=== PATIENT | male | born 1960 | race Caucasian/White ===

== ENCOUNTER → 2024-03-03 07:31 | Outpatient (REF) | payer BC, SELFPAY ==
[2024-03-03 08:03] LABS: % Basophils 0.6 % (0-2); % Eosinophils 3.4 % (0-6); % Immature Granulocytes 0.4 % (0-0.5); % Lymphocytes 22.5 % (20.5-51.1); % Monocytes 7.1 % (1.7-9.3); Absolute Basophils 0.1 10^3/uL (0-0.2); Absolute Eosinophils 0.4 10^3/uL (0-0.7); Absolute Lymphocytes 2.3 10^3/uL (1.2-3.4); Absolute Monocytes 0.7 10^3/uL (0.1-0.6); Absolute Neutrophils 6.8 10^3/uL (1.4-6.5); Hematocrit 38.2 % (39.0-52.0); Mean Corpuscular Hgb 32.6 pg (27.0-31.0); Mean Corpuscular Volume 95.7 fL (80.0-94.0); Mean Platelet Volume 10.9 fL (7.4-10.4); Nucleated Red Blood Cells % 0 % (-); Platelet Count 174 10^3/uL (130-400); Red Blood Cell Count 3.99 10^6/uL (4.70-6.10); Red Cell Dist. Width 13.5 % (11.5-14.5); White Blood Cell Count 10.3 10^3/uL (4.8-10.8)
[2024-03-03 08:46] LABS: ALT (SGPT) 15 U/L (0-50); AST (SGOT) 18 U/L (17-59); Albumin 4.4 g/dl (3.5-5.0); Alkaline Phosphatase 67 U/L (38-126); Blood Urea Nitrogen 15 mg/dl (9-20); Calcium 9.5 mg/dl (8.4-10.2); Carbon Dioxide 29 mmol/L (22-30); Chloride 102 mmol/L (98-107); Glucose 100 mg/dl (70-99); HDL Cholesterol 49 mg/dl; LDL Cholesterol, Calculated 51 mg/dl; Potassium 4.8 mmol/L (3.5-5.1); Sodium 141 mmol/L (135-145); Total Bilirubin 0.8 mg/dl (0.2-1.3); Total Cholesterol 119 mg/dl (50-199); Total Protein 7.2 g/dl (6.3-8.2); Triglyceride 99 mg/dl (10-149); Very Low Density Lipoprotein 19 mg/dl (0-30); eGFR > 60.00
[2024-03-03 09:17] LABS: PSA, Total - Screen 0.77 ng/ml (0.0-4.0)
[2024-03-03 09:36] LABS: Hepatitis C Antibody Negative (Negative)
[2024-03-03 09:42] LABS: Glycohemoglobin (HgbA1c) 5.7 % (4.0-5.6)
== END ==
LOC: REG 07:31
PROVIDERS: ATTENDING PHYSICIAN Internal Medicine
DX: Z12.5 Encounter for screening for malignant neoplasm of prostate (principal); Z11.59 Encounter for screening for other viral diseases; E11.9 Type 2 diabetes mellitus without complications; I48.91 Unspecified atrial fibrillation; E78.2 Mixed hyperlipidemia
CPT/HCPCS: 36415; 80053; 80061; 83036; 85025; 86803; G0103

== ENCOUNTER 2024-09-20 06:27 | Observation (INO) | payer BC, SELFPAY ==
[2024-09-20 01:44] VITALS: BP 186/104
--- NOTE | 2024-09-20 01:55 | ED.GENMED ---
History of Present Illness
General
Chief Complaint: Cough
Source: patient
Exam Limitations: none
Time Seen by Provider: 09/20/24 01:46
Nursing documentation reviewed up to this point in time: agreed with
History of Present Illness
History of Present Illness:
Pleasant 64-year-old male presents to the emergency department with multiple episodes of hemoptysis. He states that the symptoms began approximately 1 hour ago. He is concerned because he is on Eliquis for paroxysmal atrial fibrillation. Patient
is a smoker. He states that he cut back to three quarters of a pack per day. He does have high blood pressure and hyperlipidemia. Patient has had cancer scares in the past and gets a radiology study regularly to rule out 1.
Past History
Past History
ED Past Medical History: Arrthythmia (afib on eliquis), GERD, HTN, Hypercholesterolemia and NIDDM
ED Past Surgical History: Other (hernia)
Social History
Tobacco: Smoker
Alcohol: Daily
Review of Systems
Review of Systems
Allergies reviewed?: Yes
Other source history: family
All Other Systems: ROS reviewed and negative except as documented in HPI and ROS
Constitutional: Reports no symptoms
EENT: Reports no symptoms
Respiratory: Reports cough and hemoptysis; Denies trouble breathing
Cardiac: Denies chest pain or palpitations
ABD/GI: Reports no symptoms
: Reports no symptoms
Musculoskeletal: Reports no symptoms
Skin: Reports no symptoms
Neurological: Reports no symptoms
Endocrine: Reports no symptoms
Hematologic/Lymphatic: Reports no symptoms
Psychiatric: Reports no symptoms
Phy Exam
General Physical Exam
General Presentation: well appearing and no apparent distress
General Skin: warm and dry
General Habitus: normal
General Mental: alert
General Hydration: appears well hydrated
ENT Exam
ENT Exam: EOMI, pharynx normal, neck supple and normocephalic
Eye Exam
Eye Exam: PERRL, cornea clear and conjunctiva normal
Cardiovascular Exam
Cardiovascular Exam: regular rate/rhythm, no edema, no murmur and normal peripheral pulses
Pulmonary Exam
Pulmonary Exam: lungs clear, no respiratory distress, no rales, no crackles, no rhonchi, no stridor, no wheezing and no cough
Gastrointestinal Exam
Gastrointestinal Exam: normal bowel sounds, non tender, soft, no organomegaly, no pulsatile mass and non distended
Neurological Exam
Neurological Exam: alert, oriented x3, no motor deficits and speech normal
Musculoskeletal Exam
Musculoskeletal Exam: full ROM and no edema
Skin Exam
Skin Exam: normal color, warm/dry, no rash and no petechia
Psychiatric Exam
Psychiatric Exam: normal mood/affect
Course
Orders/Labs/Results
Orders:
Orders
09/20/24 01:54
Electrocardiogram (*1) Stat
Reason for Study: Other
Other Reason for Exam: chest pain
CT Chest PE Study Urgent
Comment:
Reason For Exam: mult episodes of hemoptysis
Cardiac Monitoring- Treatment ONCE
EKG- Treatment ONCE
09/20/24 02:17
Complete Blood Count/With Diff Urgent
Comprehensive Metabolic Panel Urgent
PTT Urgent
Prothrombin Time Urgent
Troponin I Urgent
Abnormal Lab Results
09/20/24
02:17
RBC 4.14 L 10^6/uL
(4.70-6.10)
Hgb 12.6 L g/dL
(13.0-18.0)
Hct 37.4 L %
(39.0-52.0)
RDW 14.6 H %
(11.5-14.5)
Glucose 118 H mg/dl
(70-99)
09/20/24 02:17
09/20/24 02:17
Vital Signs
Initial and Last Documented VS:
Initial Vital Signs
Temp Pulse Resp BP Pulse Ox
98 F 116 20 186/104 100
09/20/24 01:44 09/20/24 01:44 09/20/24 01:44 09/20/24 01:44 09/20/24 01:44
Last Documented Vital Signs
Temp Pulse Resp BP Pulse Ox
98 F 111 15 135/87 96
09/20/24 01:44 09/20/24 04:11 09/20/24 04:11 09/20/24 04:11 09/20/24 04:11
Update Note
Update Note:
CTA chest with IV contrast
IMPRESSION:
No pulmonary embolism. Aortic atherosclerotic disease without dissection or aneurysm.
Moderate cardiomegaly with coronary artery disease. Dependent atelectasis. No pneumothorax or pleural effusion.
Cholelithiasis without cholecystitis. Multiple adrenal nodules bilaterally are nonspecific.
Went into discussed CAT scan and lab work with patient.
Patient coughed up a large amount of bright red blood and blood clots right in front of me. Lab work looks normal
CT scan looks normal
ED Attending Note
-
Portions of this chart may have been created with voice recognition software.� Occasional wrong word or��sound alike� substitutions may have occurred due to the inherent limitations of voice recognition software.
Discharge Plan
Departure
Patient Disposition: Admit
Date of Disposition: 09/20/24
Time of Disposition: 04:31
Admit to: Telemetry
Presentation/result/management discussed w/ accepting MD/DO: Hospitalist
Patient with high blood pressure during this ER visit?: Yes
Condition: Good
Discharge Problem:
Cough with hemoptysis
Instructions: Coughing up blood, BLOOD PRESSURE
Prescriptions:
No Action
aspirin 81 MG tablet,chewable
81 mg PO DAILY Qty: 30 0RF
metformin 500 MG tablet
500 mg PO BID@0800,1700 Qty: 60 0RF
losartan 25 MG tablet
25 mg PO DAILY
esomeprazole magnesium [Nexium] 20 MG capsule,delayed release(DR/EC)
20 mg PO DAILY
atorvastatin 80 MG tablet
40 mg PO QPM
apixaban [Eliquis] 5 MG tablet
5 mg PO BID 30 Days Qty: 60 0RF
diltiazem HCl 180 MG capsule,extended release 24hr
180 mg PO DAILY 30 Days Qty: 30 0RF
Rx Instructions:
fill 180mg RX, cancel 120mg RX
Referrals:
[facility] [Outside]
[facility] [Outside]
UNKNOWN - PT DOES,NOT KNOW [Family Provider] -
Activity Restrictions/Additional Instructions:
Thank You for choosing [facility].
It was a pleasure meeting you and taking part in your care. We hope for your continued healing and wellness.
Please read discharge instructions in their entirety. However, they are for general education and may not describe your exact diagnosis at discharge. Information on your ER visit and medical conditions were discussed with you along with appropriate
follow up information...
If indicated, please take your medications as instructed and indicated on discharge paperwork.
Please schedule a follow up appointment as directed. Call to schedule an appointment
Please return to the emergency department with ANY change in, persisting, or worsening of symptoms. If any of your symptoms do not improve, or persist, or become more severe within 6-12 hours, please return to the emergency department for further
care.
Please return to the emergency department if you develop a headache, neck pain/stiffness, fever greater than 100.4F, chest pain, shortness of breath, persistent nausea, vomiting, slurred speech, difficulty walking, numbness/tingling, weakness, signs
of infection or any other symptoms that are worrisome to you.
If you have any questions or concerns please do not hesitate to call the Hospital at or E-mail me directly at [email or web address]
Interventions
Interventions:
*Risk Screen - Suicide Last Done: 09/20/24 01:44
*General Assessment Last Done: 09/20/24 02:08
*Neglect/Abuse Screening Last Done: 09/20/24 01:44
*ED- Fall Risk Assessment Last Done: 09/20/24 02:08
*ED COVID-19 Vaccine History Last Done: 09/20/24 02:08
ED- Pulmonary Assessment Last Done: 09/20/24 02:47
Discharge Date and Time
Print Language: UPPER SORBIAN
[2024-09-20 02:00] VITALS: BP 135/87
[2024-09-20 02:08] VITALS: BMI 29.3
[2024-09-20 02:47] LABS: % Basophils 0.6 % (0-2); % Eosinophils 4.1 % (0-6); % Immature Granulocytes 0.3 % (0-0.5); % Lymphocytes 26.4 % (20.5-51.1); % Monocytes 6.3 % (1.7-9.3); % Neutrophils 62.3 % (42.2-75.2); Absolute Basophils 0.1 10^3/uL (0-0.2); Absolute Eosinophils 0.4 10^3/uL (0-0.7); Absolute Lymphocytes 2.6 10^3/uL (1.2-3.4); Absolute Monocytes 0.6 10^3/uL (0.1-0.6); Absolute Neutrophils 6.1 10^3/uL (1.4-6.5); Hematocrit 37.4 % (39.0-52.0); Hemoglobin 12.6 g/dL (13.0-18.0); Mean Corp Hgb Conc. 33.7 g/dL (33.0-37.0); Mean Corpuscular Hgb 30.4 pg (27.0-31.0); Mean Corpuscular Volume 90.3 fL (80.0-94.0); Mean Platelet Volume 10.3 fL (7.4-10.4); Nucleated Red Blood Cells % 0 % (-); Platelet Count 186 10^3/uL (130-400); Red Blood Cell Count 4.14 10^6/uL (4.70-6.10); Red Cell Dist. Width 14.6 % (11.5-14.5); White Blood Cell Count 9.8 10^3/uL (4.8-10.8)
[2024-09-20 03:13] LABS: ALT (SGPT) 14 U/L (0-50); AST (SGOT) 24 U/L (17-59); Albumin 4.4 g/dl (3.5-5.0); Alkaline Phosphatase 62 U/L (38-126); Blood Urea Nitrogen 15 mg/dl (9-20); Calcium 9.3 mg/dl (8.4-10.2); Carbon Dioxide 25 mmol/L (22-30); Chloride 105 mmol/L (98-107); Estimated Creatinine Clearance 78 ml/min; Glucose 118 mg/dl (70-99); Sodium 140 mmol/L (135-145); Total Bilirubin 0.9 mg/dl (0.2-1.3); Total Protein 7.2 g/dl (6.3-8.2); eGFR > 60.00
[2024-09-20 03:18] LABS: INR 0.99; PT 13.4 Sec (11.4-14.6)
[2024-09-20 03:19] LABS: APTT 33.9 Sec (23.4-35.0)
[2024-09-20 03:20] LABS: Troponin I < 0.012 ng/ml
[2024-09-20 04:11] VITALS: BP 135/87
[2024-09-20 05:01] VITALS: BP 162/108
--- NOTE | 2024-09-20 05:04 | EDRN ---
pt cont to cough up bright red blood. pt denies pain, no complaints other than hemoptysis. pt noted to be tachycardic, in afib. dr jones made aware. refer to rhythm strip.
--- NOTE | 2024-09-20 05:48 | HPS.HSE ---
Family Physician
-
Family Physician: NOT KNOW UNKNOWN - PT DOES
Chief Complaint
-
Hemoptysis
History of Present Illness
This is a 61-year-old male with past medical history significant for atrial fibrillation on anticoagulation with apixaban, GERD, hypertension, diabetes, prior CVA who presents to the emergency department with acute episode of hemoptysis.
Patient reported going to bed in usual state of health. He denies any cough cold or flulike symptoms. He had no recent sick contacts. He reports no recent chest pain shortness of breath or dyspnea on exertion. He reports no lower extremity
swelling or tenderness. Patient denies any nausea or vomiting or diaphoresis. He denies any fevers or chills. States that middle of the night he woke up coughing. Initially was swallowing his cough. However when he got up to urinate he spit out
the cough and noticed that it was nesha blood. He coughed a few more times and had blood and he said to come to the emergency department. He also reported that he sneezed once and also had an episode of blood coming out of his nose.
Patient reports taking Eliquis regularly. He denies any NSAID use. He denies aspirin. He has no recent travels. He has no history of TB. Denies any history of malignancy. He is daily smoker stating that he has smoked all his life. Denies COPD.
In the emergency department he was afebrile, he was hemodynamically stable with a blood pressure of 135/87, pulse of 111 oxygen saturation of 96% on room air. ECG shows atrial fibrillation at a rate of 103. CBC was unremarkable with a normal WBC,
hemoglobin of 12.6 and platelet of 186. INR was 0.9. Electrolytes BUN and creatinine were normal. LFTs were unremarkable. CT chest with angiogram and PE protocol was negative for PE. There were no mass. There was no acute infiltrate. There
was no pulmonary edema.
Medical History
Past Medical History
Past Medical History: Reports Arrhythmia (Atrial fibrillation on anticoagulation), GERD, HTN and NIDDM
Past Surgical History: Reports Other (Hiatal hernia repair)
Social History
Tobacco: Smoker
Alcohol: None
Drug: None
Personal:
Living: With Family
Employment: Employed
Family History
Family History: Not pertinent
Allergies / Home Medications
Allergies reflects when Allergies were last updated in [facility].
Home Medications with original date entered in [facility]
Allergy/Medication List:
Allergies
Allergy/AdvReac Type Severity Reaction Status Date / Time
No Known Allergies Allergy Verified 09/20/24 01:46
Home Medications
aspirin 81 mg chewable tablet 81 mg PO DAILY #30 tabs 02/09/19
metformin 500 mg tablet 500 mg PO BID@0800,1700 #60 tabs 02/09/19
apixaban 5 mg tablet (Eliquis) 5 mg PO BID 30 days #60 tabs 06/06/21
atorvastatin 80 mg tablet 40 mg PO QPM 06/06/21
diltiazem HCl 180 mg capsule,extended release 24 hr 180 mg PO DAILY 30 days #30 caps 06/06/21
esomeprazole magnesium 20 mg capsule,delayed release (Nexium) 20 mg PO DAILY 06/06/21
losartan 25 mg tablet 25 mg PO DAILY 06/06/21
Review of Systems
-
History Source: Patient
Constitutional: Reports No Symptoms
EENT: Reports No Symptoms
Respiratory: Reports Cough and Hemoptysis
Cardiac: Reports No Symptoms
Abdomen/GI: Reports No Symptoms
: Reports No Symptoms
Musculoskeletal: Reports No Symptoms
Skin: Reports No Symptoms
Neurological: Reports No Symptoms
Endocrine: Reports No Symptoms
Hematologic/Lymphatic: Reports No Symptoms
Psych: Reports No Symptoms
Physical Exam
Vital Signs
Vital Signs
Temp Pulse Resp BP Pulse Ox
98 F 111 15 135/87 96
09/20/24 01:44 09/20/24 04:11 09/20/24 04:11 09/20/24 04:11 09/20/24 04:11
Physical Exam
General: Well Developed, Well Nourished, Comfortable and Conversant
HEENT: NormoCephalic, Anicteric, Moist mucous membranes and Atraumatic
Respiratory: Clear
Cardiac: S1/S2 and Irregular Rhythm
Breast: Deferred by me
GI: Soft, Non Tender, Non Distended and Normal Bowel Sounds
Rectal: Deferred by Provider
Genito-urinary: Deferred by me
Musculoskeletal: No Clubbing, No Cyanosis and No Edema
Skin: Warm
Neuro: AO x 3 and No Motor Deficits
Laboratory Results
-
09/20/24 02:17
09/20/24 02:17
Laboratory Results
PT 13.4 Sec (11.4-14.6) 09/20/24 02:17
INR 0.99 09/20/24 02:17
APTT 33.9 Sec (23.4-35.0) 09/20/24 02:17
Total Bilirubin 0.9 mg/dl (0.2-1.3) 09/20/24 02:17
AST 24 U/L (17-59) 09/20/24 02:17
ALT 14 U/L (0-50) 09/20/24 02:17
Alkaline Phosphatase 62 U/L (38-126) 09/20/24 02:17
Troponin I < 0.012 ng/ml 09/20/24 02:17
Data Reviewed
-
CT Scan: Report Reviewed by me
Medical Tests (Nuc Med, Echo, EKG etc): Image Personally Visualized and interpreted
Lab Data: Labs Reviewed by me
Impression/Plan
-
IMPRESSION:
This is a 64-year-old with history of smoking who presents with acute episode of moderate hemoptysis that started early this morning. He arose with cough productive of nesha blood. He has coughed up about 30 mL in the last [address] scan
does not provide a clear diagnosis. Patient does not have any evidence of acute bronchitis. He has no pneumonia. He is not immunocompromised There is no pulmonary embolism. He has no pulmonary edema. He has had no trauma. He is at high risk for
malignancy given his significant smoking history. In the absence of CT evidence of a clear diagnosis a flexible bronchoscopy important component of the evaluation.
PLAN:
Hemopytsis - Non-life threatening. Stable respiratory and hemodynamics.
- admit to med/surg
- check covid/flu/rsv and extended viral panel
- sputum culture
- collect sample for volume and culture
- holding apixaban for now
- inflammatory panel
- Pulmonary consultation
DM II
- hold metformin, continue sliding scale insulin
AFIB
- holding apixaban
- continue diltiazem
continue his losartan and statin
DVT PPX - SCDs
Code Status - Full code
[2024-09-20 06:27] VITALS: BMI 29.3
[2024-09-20 06:37] LABS: COVID-19 Antigen Negative (Negative)
[2024-09-20 07:12] VITALS: BMI 29.3
[2024-09-20] MEDS: CARDIZEM CD 180 MG PO (08:23)
[2024-09-20] MEDS: COZAAR 25 MG PO (08:24)
[2024-09-20 08:29] LABS: Glucose - Point of Care 111 mg/dl (70-99)
[2024-09-20 09:34] VITALS: BP 137/91
[2024-09-20 09:38] LABS: Glucose - Point of Care 119 mg/dl (70-99)
[2024-09-20] MEDS: PROTONIX 40 MG PO (10:12)
[2024-09-20 12:35] VITALS: BP 130/86
[2024-09-20 12:36] LABS: Glucose - Point of Care 90 mg/dl (70-99)
--- NOTE | 2024-09-20 13:46 | CON.PUL ---
Consultation
Consultation Request
Date/Time Consultation Requested: 09/20/2024
Date/Time Consultation Performed: 09/20/2024
Requesting Provider: Dr. Lam
Performing Provider: Dr. Yves Barron
Reason for Consultation: Hemoptysis
Medical History
-
History of Present Illness:
64-year-old man with history of smoking who presented with acute episode of moderate hemoptysis starting today. Patient arose from bed with a productive cough of nesha blood. CT of the chest showed no acute abnormalities.
Denies any symptoms suggestive of infection.
CT chest without pulmonary embolism either.
Denies shortness of breath.
Previous to this he was on his usual thyroid health. Patient denies any other complaints.
He has been in the hospital since 1 AM. Hemoptysis clearing. Minimal old blood clots.
He feels well.
Denies dark stools
Denies acid reflux symptoms
Denies swallowing problems.
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
Denies constitutional symptoms from
Denies weight loss
He smokes about half a pack per day.
Past Medical History
Past Medical History: Other (See assessment and plan)
Social History
Tobacco: Smoker
Alcohol: None
Drug: None
Personal:
Living: With Family
Employment: Employed
Family History
Family History: Reviewed & Not Pertinent
Allergies / Home Medications
Allergies
Allergy/AdvReac Type Severity Reaction Status Date / Time
No Known Allergies Allergy Verified 09/20/24 01:46
Home Medications
�Medication �Instructions �Recorded �Confirmed �Last Taken �Type
apixaban 5 mg tablet (Eliquis) 5 mg PO BID 30 days #60 tabs 06/06/21 09/20/24 09/19/24 Rx
atorvastatin 80 mg tablet 40 mg PO QPM 06/06/21 09/20/24 09/19/24 History
diltiazem HCl 180 mg 180 mg PO DAILY 30 days #30 caps 06/06/21 09/20/24 09/19/24 Rx
capsule,extended release 24 hr
esomeprazole magnesium 20 mg 20 mg PO DAILY 06/06/21 09/20/24 09/19/24 History
capsule,delayed release (Nexium)
ascorbic acid (vitamin C) 1,000 mg 1,000 mg PO DAILY 09/20/24 09/20/24 Unknown History
tablet (Vitamin C)
ibuprofen 400 mg tablet 400 mg PO Q6HPRN PRN mild pain 09/20/24 09/20/24 3 Days Ago History
~09/17/24
losartan 100 mg tablet 100 mg PO DAILY 09/20/24 09/20/24 09/19/24 History
metformin 1,000 mg tablet 1,000 mg PO BID 09/20/24 09/20/24 09/19/24 History
Review of Systems
-
History Source: Patient
All other systems: Negative unless noted
Vitals / Labs / Diagnostic Testing
Vital Signs
Temp Pulse Resp BP Pulse Ox
98 F 91 21 130/86 97
09/20/24 01:44 09/20/24 12:35 09/20/24 12:35 09/20/24 12:35 09/20/24 12:35
Lab Data
09/20/24 02:17
09/20/24 02:17
Laboratory Results
09/20/24
02:17
PT 13.4
INR 0.99
APTT 33.9
Microbiology
09/20/24 06:21 Sputum Gram Stain - Preliminary
09/20/24 06:07 Nasal Swab Influenza Types A & B (CYNDI) - Final
Negative for Influenza A & B, NAAT
Negative results must be combined with clinical observations
and patient history.
Nucleic Acid Amplification test (NAAT)performed on the
[employer] platform.
Diagnostic Testing:
Physical Exam
-
HEENT: Normocephalic
Cardiovascular: S1/S2
Respiratory: Non-Labored Respirations
GI: Soft and Non Distended
Neurology: Awake, AO x 3 and No Motor Deficits
Skin: Warm and Good Color
General: Respiratory Distress and Comfortable
Assessment
-
64-year-old man smoker, history of atrial fibrillation on anticoagulation, antiplatelet therapy, admitted with 1 episode of hemoptysis the morning of admission. Previous to this he was asymptomatic.
Hemoptysis-unclear source.
CT chest 09/20/2024: Reviewed, no evidence for pulmonary embolism. Clear lung exam. No evidence for parenchymal lung masses or nodules. Patent airways
Tobacco abuse
Conditions present prior admission:
Type 2 diabetes
Atrial fibrillation on apixaban.
Hypertension
Hyperlipidemia
Assessment and plan:
Hemoptysis: Describes bright red blood the morning prior to admission.
It is noted the patient is on apixaban/aspirin and also taking ibuprofen.
CT scan without evidence of parenchymal lung abnormality or major airway abnormality. No pulmonary embolism.
-
Hemoptysis is mild-it has been clearing. Now mixed with saliva.
Restart anticoagulation tomorrow morning.
Patient states that he has not been taking aspirin or NSAIDs.
-
If patient is eager to go home as he feels well.
I am not opposed to that with a clear CAT scan of the chest and clear lung exam.
Would like to see him in the office within 1 to 2 weeks.
I instructed him to return to the emergency room if hemoptysis worsens significantly.
If there is return of bright red hemoptysis he can hold anticoagulation for 48 hours.
At the moment restart tomorrow Eliquis as the risk of a stroke outweighs the risk of possible worsening bleeding which is mild at this point.
-
Absolute smoking cessation recommended. This may exacerbate bleeding.
-
Discussed with Dr. Ocampo.
Okay to discharge from my perspective
Sign off
Information to follow-up will be left in the chart
--- NOTE | 2024-09-20 14:53 | W.PN.UPDATE ---
Update Note
Progress Note Update
The patient was admitted with hemoptysis small amount. Initial evaluation with the CT chest showed no evidence of mass or PE.
Evaluated by pulmonary Dr. Barron who called me just now saying that it probably could be capillary bleeding and he was okay for discharge from the standpoint. Patient advised to hold Eliquis for today and resume tomorrow. He would follow-up with
pulmonary as an outpatient in 2 weeks time.
No changes were made to his medication regimen.Advised to avoid NSAIDs while on Eliquis.
--- NOTE | 2024-09-21 17:11 | W.DCSUMMARY ---
Discharge Summary
Discharge Data
Date of Admission: 09/20/24
Date of Discharge: 09/20/24
-
Pending Results: No
Hospital Course
Primary diagnosis:
Hemoptysis
Secondary diagnosis:
Diabetes mellitus type 2
Atrial fibrillation on anticoagulation
Hospital course:
64-year-old with history of smoking presented with acute episode of moderate hemoptysis. He meryl from the bed with productive cough of nesha blood. He was in usual state of health before that. He denies any symptoms suggestive of infection. He
had no shortness of breath.
No prior history of hemoptysis. He was an excellent physical health as well and still working part-time. He denies any weight loss. He smokes half pack per day.
He is known to have atrial fibrillation anticoagulation treatment.
His lungs were clear. There was no evidence of PE or parenchymal lung masses or nodules on the chest CT. Airways were patent.
Seen by pulmonary who felt the the hemoptysis was bright red blood. Hemoptysis was mild and was clearing.
With a clear chest CT and no obvious current acute infectious symptoms or inflammatory conditions of the lung present he was discharged home to follow-up with pulmonary if hemoptysis recurs. He was advised to hold anticoagulation on the day of
discharge and restart next day.
Consultants on board:
Pulmonary-Yves Elliott
Discharge Plan
-
Patient Disposition: Home (Routine Discharge)
Discharge Diagnosis/Procedures: Hemoptysis with negative Chest CT for focal abnormality/PE
Diet: Low Cholesterol
Activity: As tolerated
Driving Restrictions: As prior to admission
Bathing Restrictions: None
Referrals:
Yves Wang MD [Active] - in one to two weeks (Hemoptysis, may see [facility]DER)
UNKNOWN - PT DOES,NOT KNOW [Family Provider] - in less than 1 week
Prescriptions:
New
dextromethorphan-guaifenesin 10-100 mg/5 mL Syrup
5 ml PO Q6HPRN PRN (Reason: cough) Qty: 237 0RF
Continued
esomeprazole magnesium [Nexium] 20 MG capsule,delayed release(DR/EC)
20 mg PO DAILY
atorvastatin 80 MG tablet
40 mg PO QPM
diltiazem HCl 180 MG capsule,extended release 24hr
180 mg PO DAILY 30 Days Qty: 30 0RF
ascorbic acid (vitamin C) [Vitamin C] 1,000 mg Tablet
1,000 mg PO DAILY
metformin 1,000 mg Tablet
1,000 mg PO BID
Changed
losartan 100 mg Tablet
25 mg PO DAILY Qty: 0 0RF
Rx Instructions:
Dose as before. There are no changes from my end.
Held
Eliquis 5 MG tablet
5 mg PO BID 30 Days Qty: 60 0RF
Hold Instructions: Resume on 09/21/24.
Discontinued
ibuprofen [Motrin] 400 mg Tablet
400 mg PO Q6HPRN PRN (Reason: mild pain)
Discharge Orders:
Discharge Patient (As Directed); Ordered 09/20/24
Ordered By: Tate Ocampo
Discharge Date and Time
Discharge Date/Time: 09/20/24 15:45
Print Language: ARMENIAN
== END 2024-09-20 15:45 | disposition home or self-care (01) ==
LOC: ED 06:27
PROVIDERS: ADMITTING PHYSICIAN Internal Medicine; ATTENDING PHYSICIAN Internal Medicine; EMERGENCY PHYSICIAN Student in an Organized Health Care Education/Training Program; OTHER PHYSICIAN Internal Medicine Critical Care Medicine
DX: R04.2 Hemoptysis (principal); R05.9 Cough, unspecified; F17.210 Nicotine dependence, cigarettes, uncomplicated; E11.9 Type 2 diabetes mellitus without complications; I48.0 Paroxysmal atrial fibrillation; E78.00 Pure hypercholesterolemia, unspecified; I10 Essential (primary) hypertension; Z79.01 Long term (current) use of anticoagulants
CPT/HCPCS: 71275; 80053; 82962; 84484; 85025; 85610; 85730; 87070; 87205; 87502; 87811; 93005; 99285; G0378; Q9967

== ENCOUNTER → 2025-06-04 11:15 | Outpatient (REF) | payer BC, SELFPAY | LOC: RCS 11:15 | PROVIDERS: ATTENDING PHYSICIAN Internal Medicine Cardiovascular Disease | DX: I48.91 Unspecified atrial fibrillation (principal) | CPT/HCPCS: 93306 ==